=== PATIENT | female | born 1975 | race African-American/Black ===

== ENCOUNTER 2020-05-31 20:22 | Inpatient (IN) ==
[2020-05-31] MEDS ORDERED: ONDANSETRON 4 MG/2 ML VIAL IV STA (21:06)
[2020-05-31] MEDS ORDERED: SODIUM CHLORIDE 0.9% 1,000 ML IV STA (21:06)
[2020-05-31 21:36] LABS: Basophils % 0.7 % (0.0-0.8); Eosinophils % 0.2 % (0.00-10.9); Hematocrit 35.4 VOL% (35.7-47.0); Hemoglobin 11.3 GM/DL (12.0-16.0); Immature Granulocytes % 3.1 %; Immature Granulocytes Absolute 0.17 #; Lymphocytes % 17.5 % (21.3-54.2); Mean Corpuscular HGB Conc 31.9 GM/DL (32-36); Mean Corpuscular Volume 84.3 FL (87-102); Mean Platelet Volume 8.5 FL (9.6-12.0); Monocytes % 8.5 % (1.7-12.7); NRBC # 0.14 10*3/uL; Platelet Count 272 T/CUMM (130-400); Red Cell Distribution Width 19.7 % (9.3-17.3); White Blood Count 5.4 T/CUMM (4-12)
[2020-05-31 21:56] LABS: Alanine Aminotransferase 189 U/L (13-56); Albumin 3.3 G/DL (3.4-5.0); Alkaline Phosphatase 82 U/L (45-117); Amylase 21 U/L (25-115); Aspartate Amino Transferase 173 U/L (0-37); Blood Urea Nitrogen < 1 MG/DL (7-18); Calcium 8.3 MG/DL (8.5-10.1); Estimated Glom Filtration Rate 78 ML/MIN; Glucose 172 MG/DL (74-106); Osmolality,Calculated 271.3 MOS/KG (273-304); Total Protein 7.3 G/DL (6.4-8.3)
[2020-05-31] MEDS ORDERED: PROMETHAZINE 25 MG/1 ML VIAL ONE (22:07)
[2020-05-31 22:31] LABS: Band Neutrophils 1 % (0-10); Lymphocytes 13 % (20-55); Nucleated Red Blood Cells 1 (0-5); Platelet Estimate Normal; Segmented Neutrophils 77 % (50-85); Total Cells Counted 100
[2020-05-31 22:32] LABS: Anisocytosis 2+; Hypochromasia Slight; Microcytosis 1+; Polychromasia Few
[2020-05-31 22:33] LABS: Ovalocytes Slight
[2020-05-31] MEDS ORDERED: PROMETHAZINE 25 MG/1 ML VIAL IM STA (22:40)
[2020-05-31] MEDS ORDERED: NICOTINE 21 MG/24 HR PATCH TRANSDERM PRN (22:58)
[2020-05-31] MEDS ORDERED: diphenhydrAMINE CAP 25 MG CAPSULE PO PRN (22:58)
[2020-05-31] MEDS ORDERED: DEXTROSE 50% 25 GM/50 ML VIAL IV PRN (22:58)
[2020-05-31] MEDS ORDERED: hydrALAZINE 20 MG/1 ML VIAL IV PRN (22:58)
[2020-05-31] MEDS ORDERED: ACETAMINOPHEN 325 MG TABLET PO PRN (22:58)
[2020-05-31] MEDS ORDERED: ONDANSETRON 4 MG/2 ML VIAL IV PRN (22:58)
[2020-05-31] MEDS ORDERED: guaiFENesin/DM ER 600-30 MG TABLET PO PRN (22:58)
[2020-05-31] MEDS ORDERED: PROMETHAZINE 25 MG/1 ML VIAL IM PRN (22:58)
[2020-05-31] MEDS ORDERED: GLUCAGON 1 MG VIAL IM PRN (22:58)
[2020-05-31] MEDS ORDERED: DOCUSATE SODIUM 100 MG CAPSULE PO PRN (22:58)
[2020-05-31] MEDS ORDERED: SODIUM CHLOR 0.9% KCL 40 MEQ 40 MEQ/1,000 ML BAG IV SCH (23:00)
[2020-05-31] MEDS: POTASSIUM CHLORIDE 20 MEQ TABLET PO SCH (23:30)
[2020-05-31] MEDS: SODIUM CHLOR 0.9% KCL 40 MEQ 40 MEQ/1,000 ML BAG IV SCH (23:45)
[2020-06-01 04:52] LABS: Basophils % 0.7 % (0.0-0.8); Eosinophils % 0.2 % (0.00-10.9); Hematocrit 33.8 VOL% (35.7-47.0); Hemoglobin 10.8 GM/DL (12.0-16.0); Immature Granulocytes % 3.4 %; Immature Granulocytes Absolute 0.19 #; Lymphocytes % 17.9 % (21.3-54.2); Mean Corpuscular Volume 84.3 FL (87-102); Mean Platelet Volume 9.3 FL (9.6-12.0); Monocytes % 8.2 % (1.7-12.7); NRBC # 0.09 10*3/uL; Neutrophils % 69.6 % (38.7-73.9); Platelet Count 277 T/CUMM (130-400); Red Blood Count 4.01 MC/CUMM (3.8-5.5); Red Cell Distribution Width 19.9 % (9.3-17.3); White Blood Count 5.6 T/CUMM (4-12)
[2020-06-01 05:09] LABS: Bilirubin,Total 1.4 MG/DL (0.2-1.0); Calcium 8.2 MG/DL (8.5-10.1); Osmolality,Calculated 270.8 MOS/KG (273-304); Thyroid Stimulating Hormone 2.18 uIU/ml (0.358-3.74); Total Protein 6.8 G/DL (6.4-8.3)
[2020-06-01 05:13] LABS: Band Neutrophils 2 % (0-10); Eosinophils 1 % (0-10); Hypochromasia 1+; Lymphocytes 15 % (20-55); Nucleated Red Blood Cells 1 (0-5); Platelet Estimate Adequate; Segmented Neutrophils 80 % (50-85); Total Cells Counted 100
[2020-06-01 05:14] LABS: Microcytosis Slight
[2020-06-01 06:27] LABS: Hepatitis B Core IgM Quant 0.13 Index; Hepatitis B Surface Ag Quant < 0.10 Index; Hepatitis B Surface Ag Result Negative (Negative); Hepatitis C Virus Ab Quant 0.06 Index; Hepatitis C Virus Ab Result Negative (Negative)
[2020-06-01] MEDS ORDERED: CITALOPRAM 20 MG TABLET PO SCH (09:00)
[2020-06-01] MEDS ORDERED: PANTOPRAZOLE 40 MG TABLET PO SCH (09:00)
[2020-06-01] MEDS ORDERED: MYLANTA/LIDO VISC 2:1 300 ML BOTTLE SWISH/SPIT PRN (09:09)
[2020-06-01] MEDS ORDERED: chlorproMAZINE INJ 50 MG in SODIUM CHLORIDE 0.9% 100 ML IV PRN (09:09)
[2020-06-01] MEDS ORDERED: LOPERAMIDE 2 MG CAPSULE PO PRN ×2 (09:09)
[2020-06-01] MEDS ORDERED: BENZTROPINE 2 MG/2 ML AMP IV PRN (09:09)
[2020-06-01] MEDS ORDERED: chlorproMAZINE INJ 25 MG in SODIUM CHLORIDE 0.9% 100 ML IV PRN (09:09)
[2020-06-01] MEDS ORDERED: LACTULOSE 20 GM/30 ML UDCUP PO PRN (09:09)
[2020-06-01] MEDS ORDERED: guaiFENesin 200 MG/10 ML UDCUP PO PRN (09:09)
[2020-06-01] MEDS ORDERED: chlorproMAZINE 25 MG TABLET PO PRN (09:09)
[2020-06-01] MEDS ORDERED: ALUMINUM/MAGNES/SIMETH MAX STR 30 ML UDCUP PO PRN (09:09)
[2020-06-01] MEDS ORDERED: TEMAZEPAM 7.5 MG CAPSULE PO PRN (09:09)
[2020-06-01] MEDS ORDERED: MAGNESIUM HYDROXIDE SUSP 30 ML UDCUP PO PRN (09:09)
[2020-06-01] MEDS ORDERED: ONDANSETRON 4 MG/2 ML VIAL IV PRN (09:09)
[2020-06-01] MEDS ORDERED: MYLANTA/LIDO VISC 2:1 300 ML BOTTLE SWISH/SWAL PRN (09:09)
[2020-06-01] MEDS ORDERED: MAGNESIUM SULF RIDER 4 GM in PREMIX 1 EACH IV ONE (09:14)
[2020-06-01] MEDS ORDERED: DEXAMETHASONE INJ 10 MG in SODIUM CHLORIDE 0.9% 50 ML IV ONE ×2 (09:34→10:00)
[2020-06-01] MEDS: LEVOFLOXACIN INJ 500 MG in PREMIX 1 EACH IV SCH (10:01)
[2020-06-01] MEDS: PANTOPRAZOLE 40 MG VIAL IV SCH ×2 (10:03→20:58)
[2020-06-01] MEDS: ENOXAPARIN 40 MG/0.4 ML SYRINGE SUBCUT SCH (10:03)
[2020-06-01] MEDS: ALPRAZolam 0.25 MG TABLET PO PRN ×2 (10:03→20:58)
[2020-06-01] MEDS: POTASSIUM CHLORIDE 20 MEQ TABLET PO SCH ×3 (10:03→22:07)
[2020-06-01] MEDS: LEVOTHYROXINE 150 MCG TABLET PO SCH (11:15)
[2020-06-01] MEDS: PROMETHAZINE INJ 25 MG in SODIUM CHLORIDE 0.9% 50 ML IV PRN ×3 (12:10→21:07)
[2020-06-01] MEDS: MORPHINE 4 MG/1 ML VIAL IV PRN (18:33)
[2020-06-01] MEDS: DOXEPIN 25 MG CAPSULE PO SCH (20:58)
[2020-06-01] MEDS: SODIUM CHLOR 0.9% KCL 40 MEQ 40 MEQ/1,000 ML BAG IV SCH (21:07)
[2020-06-01] MEDS: POTASSIUM CHLORIDE RIDER 10 MEQ in PREMIX 1 EACH IV PRN (22:36)
[2020-06-01] MEDS: ZALEPLON 5 MG CAPSULE PO PRN (22:36)
[2020-06-02] MEDS: POTASSIUM CHLORIDE RIDER 10 MEQ in PREMIX 1 EACH IV PRN ×3 (00:44→02:52)
[2020-06-02] MEDS: METOCLOPRAMIDE 10 MG/2 ML VIAL IV SCH ×4 (01:39→17:34)
[2020-06-02] MEDS: ALPRAZolam 0.25 MG TABLET PO PRN (02:56)
[2020-06-02] MEDS: SODIUM CHLOR 0.9% KCL 40 MEQ 40 MEQ/1,000 ML BAG IV SCH ×2 (05:35→17:31)
[2020-06-02 05:43] LABS: Basophils # 0.1 10*3/uL (0.0-0.2); Basophils % 0.7 % (0.0-0.8); Eosinophils % 0.1 % (0.00-10.9); Hematocrit 33.1 VOL% (35.7-47.0); Hemoglobin 10.7 GM/DL (12.0-16.0); Immature Granulocytes % 4.9 %; Immature Granulocytes Absolute 0.49 #; Lymphocytes # 1.5 10*3/uL (1.4-4.0); Lymphocytes % 15.5 % (21.3-54.2); Mean Corpuscular HGB Conc 32.3 GM/DL (32-36); Mean Corpuscular Volume 83.4 FL (87-102); Mean Platelet Volume 8.8 FL (9.6-12.0); Monocytes % 6.9 % (1.7-12.7); NRBC # 0.25 10*3/uL; Neutrophils % 71.9 % (38.7-73.9); Platelet Count 269 T/CUMM (130-400); Red Blood Count 3.97 MC/CUMM (3.8-5.5); Red Cell Distribution Width 21.2 % (9.3-17.3); White Blood Count 9.9 T/CUMM (4-12)
[2020-06-02] MEDS: PROMETHAZINE INJ 25 MG in SODIUM CHLORIDE 0.9% 50 ML IV PRN ×4 (06:04→23:42)
[2020-06-02 06:07] LABS: Burr Cells Slight; Hypochromasia 1+; Ovalocytes Slight; Platelet Estimate Adequate
[2020-06-02 06:08] LABS: Microcytosis Slight
[2020-06-02 06:12] LABS: Bilirubin,Total 2.1 MG/DL (0.2-1.0); Osmolality,Calculated 267.5 MOS/KG (273-304); Total Protein 7.1 G/DL (6.4-8.3)
[2020-06-02 06:13] LABS: Osmolality,Calculated 270.4 MOS/KG (273-304)
[2020-06-02] MEDS ORDERED: METOPROLOL TARTRATE 5 MG/5 ML VIAL IV ONE (07:03)
[2020-06-02] MEDS ORDERED: HYDROCORTISONE 2.5% CREAM 30 GM TUBE TOP PRN (08:11)
[2020-06-02] MEDS ORDERED: SKIN HEALING OINT (AQUAPHOR) 50 GM TUBE TOP PRN (08:12)
[2020-06-02] MEDS: LEVOFLOXACIN INJ 500 MG in PREMIX 1 EACH IV SCH (09:10)
[2020-06-02] MEDS: COLESTIPOL 1 GM TABLET PO SCH ×2 (09:15→20:28)
[2020-06-02] MEDS: LEVOTHYROXINE 150 MCG TABLET PO SCH (09:16)
[2020-06-02] MEDS: PANTOPRAZOLE 40 MG VIAL IV SCH ×2 (09:16→20:30)
[2020-06-02] MEDS: ENOXAPARIN 40 MG/0.4 ML SYRINGE SUBCUT SCH (09:17)
[2020-06-02] MEDS: MORPHINE 4 MG/1 ML VIAL IV PRN ×2 (09:58→20:32)
[2020-06-02] MEDS: DOXEPIN 25 MG CAPSULE PO SCH (20:29)
[2020-06-03] MEDS: diphenhydrAMINE CAP 25 MG CAPSULE PO PRN (00:19)
[2020-06-03] MEDS: METOCLOPRAMIDE 10 MG/2 ML VIAL IV SCH ×5 (00:19→23:48)
[2020-06-03] MEDS: PROMETHAZINE INJ 25 MG in SODIUM CHLORIDE 0.9% 50 ML IV PRN ×4 (05:29→23:49)
[2020-06-03 06:11] LABS: Basophils # 0.1 10*3/uL (0.0-0.2); Basophils % 0.6 % (0.0-0.8); Eosinophils % 0.4 % (0.00-10.9); Hematocrit 33.6 VOL% (35.7-47.0); Hemoglobin 10.6 GM/DL (12.0-16.0); Immature Granulocytes % 5.9 %; Immature Granulocytes Absolute 0.46 #; Lymphocytes # 1.4 10*3/uL (1.4-4.0); Lymphocytes % 17.5 % (21.3-54.2); Mean Corpuscular HGB Conc 31.5 GM/DL (32-36); Mean Corpuscular Volume 85.1 FL (87-102); Mean Platelet Volume 9.6 FL (9.6-12.0); Monocytes % 4.9 % (1.7-12.7); NRBC # 0.23 10*3/uL; Neutrophils % 70.7 % (38.7-73.9); Platelet Count 269 T/CUMM (130-400); Red Blood Count 3.95 MC/CUMM (3.8-5.5); Red Cell Distribution Width 21.7 % (9.3-17.3); White Blood Count 7.8 T/CUMM (4-12)
[2020-06-03 06:49] LABS: Calcium 8.4 MG/DL (8.5-10.1); Osmolality,Calculated 268.2 MOS/KG (273-304)
[2020-06-03 06:58] LABS: Albumin 2.8 G/DL (3.4-5.0); Bilirubin,Direct 1.22 MG/DL (0.0-0.20); Bilirubin,Indirect 0.7 MG/DL (0.0-1.0); Bilirubin,Total 1.9 MG/DL (0.2-1.0); Total Protein 6.7 G/DL (6.4-8.3)
[2020-06-03 07:17] LABS: Band Neutrophils 6 % (0-10); Eosinophils 1 % (0-10); Lymphocytes 8 % (20-55); Nucleated Red Blood Cells 5 (0-5); Platelet Estimate Adequate; Segmented Neutrophils 80 % (50-85); Total Cells Counted 100
[2020-06-03 07:18] LABS: Hypochromasia Slight; Microcytosis Slight; Ovalocytes Slight
[2020-06-03 07:20] LABS: Albumin 2.8 G/DL (3.4-5.0); Bilirubin,Total 1.8 MG/DL (0.2-1.0); Calcium 8.4 MG/DL (8.5-10.1); Osmolality,Calculated 269.2 MOS/KG (273-304); Total Protein 6.6 G/DL (6.4-8.3)
[2020-06-03] MEDS: SODIUM CHLOR 0.9% KCL 40 MEQ 40 MEQ/1,000 ML BAG IV SCH ×2 (08:41→23:46)
[2020-06-03] MEDS: LEVOFLOXACIN INJ 500 MG in PREMIX 1 EACH IV SCH (08:41)
[2020-06-03] MEDS: PANTOPRAZOLE 40 MG VIAL IV SCH ×2 (08:42→21:06)
[2020-06-03] MEDS: ENOXAPARIN 40 MG/0.4 ML SYRINGE SUBCUT SCH (08:42)
[2020-06-03] MEDS: LEVOTHYROXINE 150 MCG TABLET PO SCH (08:42)
[2020-06-03] MEDS: COLESTIPOL 1 GM TABLET PO SCH ×2 (08:42→21:06)
[2020-06-03] MEDS: METOPROLOL SUCCINATE XL 25 MG TABLET PO SCH (09:49)
[2020-06-03] MEDS: DOXEPIN 25 MG CAPSULE PO SCH (21:06)
[2020-06-03] MEDS: ZALEPLON 5 MG CAPSULE PO PRN (21:06)
[2020-06-04] MEDS: METOCLOPRAMIDE 10 MG/2 ML VIAL IV SCH ×2 (06:28→14:15)
[2020-06-04] MEDS: LEVOFLOXACIN INJ 500 MG in PREMIX 1 EACH IV SCH (09:31)
[2020-06-04] MEDS: LEVOTHYROXINE 150 MCG TABLET PO SCH (09:32)
[2020-06-04] MEDS: COLESTIPOL 1 GM TABLET PO SCH ×2 (09:32→21:32)
[2020-06-04] MEDS: ENOXAPARIN 40 MG/0.4 ML SYRINGE SUBCUT SCH (09:32)
[2020-06-04] MEDS: PANTOPRAZOLE 40 MG VIAL IV SCH ×2 (09:32→21:16)
[2020-06-04] MEDS: METOPROLOL SUCCINATE XL 25 MG TABLET PO SCH (09:33)
[2020-06-04 10:50] LABS: Basophils # 0.1 10*3/uL (0.0-0.2); Basophils % 1.2 % (0.0-0.8); Eosinophils % 0.3 % (0.00-10.9); Hematocrit 32.1 VOL% (35.7-47.0); Hemoglobin 10.9 GM/DL (12.0-16.0); Immature Granulocytes % 10.8 %; Immature Granulocytes Absolute 0.78 #; Lymphocytes # 1.5 10*3/uL (1.4-4.0); Lymphocytes % 20.6 % (21.3-54.2); Mean Corpuscular Volume 80.7 FL (87-102); Mean Platelet Volume 8.7 FL (9.6-12.0); Monocytes % 5.9 % (1.7-12.7); NRBC # 0.25 10*3/uL; Neutrophils % 61.2 % (38.7-73.9); Platelet Count 246 T/CUMM (130-400); Red Blood Count 3.98 MC/CUMM (3.8-5.5); Red Cell Distribution Width 21.5 % (9.3-17.3); White Blood Count 7.3 T/CUMM (4-12)
[2020-06-04] MEDS: MORPHINE 4 MG/1 ML VIAL IV PRN (11:07)
[2020-06-04 11:20] LABS: Calcium 8.1 MG/DL (8.5-10.1); Osmolality,Calculated 268.2 MOS/KG (273-304)
[2020-06-04 11:26] LABS: Band Neutrophils 8 % (0-10); Hypochromasia 1+; Lymphocytes 17 % (20-55); Microcytosis 1+; Myelocytes 1 %; Nucleated Red Blood Cells 5 (0-5); Polychromasia Slight; Segmented Neutrophils 69 % (50-85); Total Cells Counted 100
[2020-06-04 11:27] LABS: Platelet Estimate Normal
[2020-06-04] MEDS ORDERED: FOSAPREPITANT 150 MG in SODIUM CHLORIDE 0.9% 100 ML IV ONE (14:00)
[2020-06-04] MEDS: SODIUM CHLOR 0.9% KCL 40 MEQ 40 MEQ/1,000 ML BAG IV SCH (17:30)
[2020-06-04] MEDS: SCOPOLAMINE 1.5 MG PATCH TRANSDERM SCH (17:30)
[2020-06-04] MEDS: PROMETHAZINE INJ 25 MG in SODIUM CHLORIDE 0.9% 50 ML IV PRN (21:16)
[2020-06-04] MEDS: DOXEPIN 25 MG CAPSULE PO SCH (21:16)
[2020-06-05] MEDS: PROMETHAZINE INJ 25 MG in SODIUM CHLORIDE 0.9% 50 ML IV PRN ×3 (03:08→20:45)
[2020-06-05] MEDS: MORPHINE 4 MG/1 ML VIAL IV PRN (04:04)
[2020-06-05 06:30] LABS: Basophils # 0.1 10*3/uL (0.0-0.2); Basophils % 1.1 % (0.0-0.8); Eosinophils % 0.2 % (0.00-10.9); Hematocrit 30.6 VOL% (35.7-47.0); Hemoglobin 10.3 GM/DL (12.0-16.0); Immature Granulocytes Absolute 0.84 #; Lymphocytes # 1.2 10*3/uL (1.4-4.0); Mean Corpuscular HGB Conc 33.7 GM/DL (32-36); Mean Corpuscular Volume 81.2 FL (87-102); Mean Platelet Volume 8.9 FL (9.6-12.0); Monocytes % 6.8 % (1.7-12.7); NRBC # 0.28 10*3/uL; Neutrophils % 60.9 % (38.7-73.9); Platelet Count 242 T/CUMM (130-400); Red Blood Count 3.77 MC/CUMM (3.8-5.5); Red Cell Distribution Width 21.2 % (9.3-17.3); White Blood Count 6.4 T/CUMM (4-12)
[2020-06-05 06:50] LABS: Osmolality,Calculated 272.8 MOS/KG (273-304)
[2020-06-05 07:19] LABS: Band Neutrophils 9 % (0-10); Hypochromasia 1+; Lymphocytes 18 % (20-55); Metamyelocytes 2 %; Microcytosis 1+; Myelocytes 3 %; Nucleated Red Blood Cells 6 (0-5); Segmented Neutrophils 60 % (50-85); Tear Drop Cells Slight; Total Cells Counted 100
[2020-06-05 07:20] LABS: Ovalocytes Slight; Platelet Estimate Normal; Polychromasia Slight; Target Cells Slight
[2020-06-05] MEDS: SODIUM CHLOR 0.9% KCL 40 MEQ 40 MEQ/1,000 ML BAG IV SCH ×2 (09:21→21:18)
[2020-06-05] MEDS: LEVOFLOXACIN INJ 500 MG in PREMIX 1 EACH IV SCH (09:21)
[2020-06-05] MEDS: COLESTIPOL 1 GM TABLET PO SCH ×3 (09:22→20:54)
[2020-06-05] MEDS: LEVOTHYROXINE 150 MCG TABLET PO SCH (09:22)
[2020-06-05] MEDS: ENOXAPARIN 40 MG/0.4 ML SYRINGE SUBCUT SCH (09:22)
[2020-06-05] MEDS: PANTOPRAZOLE 40 MG VIAL IV SCH ×2 (09:23→20:44)
[2020-06-05] MEDS: METOPROLOL SUCCINATE XL 25 MG TABLET PO SCH (09:23)
[2020-06-05] MEDS ORDERED: chlorproMAZINE INJ 25 MG in SODIUM CHLORIDE 0.9% 100 ML IV PRN (12:25)
[2020-06-05] MEDS: POTASSIUM CHLORIDE RIDER 20 MEQ in PREMIX 1 EACH IV PRN ×2 (13:02→15:46)
[2020-06-05] MEDS: DOXEPIN 25 MG CAPSULE PO SCH (20:45)
[2020-06-05] MEDS: ALPRAZolam 0.25 MG TABLET PO PRN (23:08)
[2020-06-06] MEDS: SODIUM CHLOR 0.9% KCL 40 MEQ 40 MEQ/1,000 ML BAG IV SCH (04:41)
[2020-06-06 06:32] LABS: Basophils # 0.1 10*3/uL (0.0-0.2); Basophils % 1.6 % (0.0-0.8); Eosinophils % 0.2 % (0.00-10.9); Hemoglobin 9.6 GM/DL (12.0-16.0); Immature Granulocytes % 18.4 %; Immature Granulocytes Absolute 1.03 #; Lymphocytes # 1.2 10*3/uL (1.4-4.0); Lymphocytes % 20.6 % (21.3-54.2); Mean Corpuscular HGB Conc 34.3 GM/DL (32-36); Mean Corpuscular Volume 79.1 FL (87-102); Mean Platelet Volume 8.7 FL (9.6-12.0); Monocytes % 8.8 % (1.7-12.7); NRBC # 0.25 10*3/uL; Neutrophils % 50.4 % (38.7-73.9); Platelet Count 228 T/CUMM (130-400); Red Blood Count 3.54 MC/CUMM (3.8-5.5); Red Cell Distribution Width 21.2 % (9.3-17.3); White Blood Count 5.6 T/CUMM (4-12)
[2020-06-06 07:04] LABS: Albumin 2.1 G/DL (3.4-5.0); Bilirubin,Total 1.9 MG/DL (0.2-1.0); Calcium 8.1 MG/DL (8.5-10.1); Osmolality,Calculated 271.8 MOS/KG (273-304); Total Protein 6.1 G/DL (6.4-8.3)
[2020-06-06 07:07] LABS: Anisocytosis 2+; Band Neutrophils 19 % (0-10); Lymphocytes 19 % (20-55); Metamyelocytes 4 %; Myelocytes 3 %; Nucleated Red Blood Cells 10 (0-5); Platelet Estimate Normal; Polychromasia Slight; Segmented Neutrophils 45 % (50-85); Smudge Cells 1+; Target Cells Few; Tear Drop Cells Few; Total Cells Counted 100
[2020-06-06 07:08] LABS: Ovalocytes Few
[2020-06-06] MEDS: SODIUM CHLORIDE 0.9% 1,000 ML IV SCH (08:34)
[2020-06-06] MEDS ORDERED: propofoL 200 MG/20 ML VIAL IV ONE (09:00)
[2020-06-06] MEDS ORDERED: LIDOCAINE 2% 5 ML VIAL ONE (09:00)
[2020-06-06] MEDS ORDERED: ESMOLOL 100 MG/10 ML VIAL IV ONE (09:00)
[2020-06-06 10:02] LABS: % Iron Saturation 91.8 % (18-50)
[2020-06-06] MEDS ORDERED: MORPHINE 4 MG/1 ML VIAL IV ONE (10:16)
[2020-06-06 11:00] LABS: Hepatitis B Core IgM Quant 0.14 Index; Hepatitis B Surface Ag Quant < 0.10 Index; Hepatitis B Surface Ag Result Negative (Negative); Hepatitis C Virus Ab Quant 0.08 Index; Hepatitis C Virus Ab Result Negative (Negative)
[2020-06-06] MEDS: COLESTIPOL 1 GM TABLET PO SCH ×2 (11:14→21:48)
[2020-06-06] MEDS: PANTOPRAZOLE 40 MG VIAL IV SCH ×2 (11:21→21:53)
[2020-06-06] MEDS: ENOXAPARIN 40 MG/0.4 ML SYRINGE SUBCUT SCH (11:21)
[2020-06-06] MEDS: METOCLOPRAMIDE 10 MG/10 ML UDCUP PO SCH ×3 (11:21→21:51)
[2020-06-06] MEDS: LEVOTHYROXINE 150 MCG TABLET PO SCH (11:21)
[2020-06-06] MEDS: METOPROLOL SUCCINATE XL 25 MG TABLET PO SCH (11:21)
[2020-06-06] MEDS: PROMETHAZINE INJ 25 MG in SODIUM CHLORIDE 0.9% 50 ML IV PRN ×3 (11:24→21:54)
[2020-06-06] MEDS: LEVOFLOXACIN INJ 500 MG in PREMIX 1 EACH IV SCH ×2 (11:55→11:56)
[2020-06-06] MEDS: DOXEPIN 25 MG CAPSULE PO SCH (21:48)
[2020-06-06] MEDS: ALPRAZolam 0.25 MG TABLET PO PRN (21:48)
[2020-06-06] MEDS: diphenhydrAMINE CAP 25 MG CAPSULE PO PRN (21:49)
[2020-06-07] MEDS: SODIUM CHLOR 0.9% KCL 40 MEQ 40 MEQ/1,000 ML BAG IV SCH ×3 (00:05→13:44)
[2020-06-07] MEDS: ZALEPLON 5 MG CAPSULE PO PRN ×2 (01:51→22:12)
[2020-06-07 06:43] LABS: Basophils # 0.1 10*3/uL (0.0-0.2); Basophils % 1.3 % (0.0-0.8); Eosinophils % 0.2 % (0.00-10.9); Hematocrit 27.3 VOL% (35.7-47.0); Immature Granulocytes % 18.3 %; Immature Granulocytes Absolute 1.01 #; Lymphocytes # 1.3 10*3/uL (1.4-4.0); Lymphocytes % 23.2 % (21.3-54.2); Mean Corpuscular Volume 80.3 FL (87-102); Mean Platelet Volume 8.8 FL (9.6-12.0); Monocytes % 8.5 % (1.7-12.7); NRBC # 0.28 10*3/uL; Neutrophils % 48.5 % (38.7-73.9); Platelet Count 212 T/CUMM (130-400); Red Cell Distribution Width 21.4 % (9.3-17.3); White Blood Count 5.5 T/CUMM (4-12)
[2020-06-07 07:19] LABS: Albumin 1.9 G/DL (3.4-5.0); Bilirubin,Total 2.5 MG/DL (0.2-1.0); Calcium 8.1 MG/DL (8.5-10.1); Osmolality,Calculated 273.7 MOS/KG (273-304); Total Protein 5.8 G/DL (6.4-8.3)
[2020-06-07 07:22] LABS: Apearance,Urine CLEAR (Clear); Bacteria,Urine Occasional /HPF (Few); Bilirubin,Urine Negative (Negative); Blood, Urine Negative (Negative); Glucose,Urine (UA) Negative (Negative); Ketones,Urine Negative (Negative); Mucus,Urine Occasional /LPF (Occasional); Nitrite,Urine Negative (Negative); Protein,Urine Negative; RBC,Urine 3 /HPF (0-4); Squamous Epithelial Cell,Urine Occasional /HPF (0-10); Urine Color Yellow (Yellow); Urine Urobilinogen < 2.0 EU/DL (0.2-1.0); WBC,Urine 1 /HPF (0-6)
[2020-06-07 07:55] LABS: Band Neutrophils 4 % (0-10); Lymphocytes 23 % (20-55); Metamyelocytes 5 %; Myelocytes 3 %; Nucleated Red Blood Cells 6 (0-5); Segmented Neutrophils 56 % (50-85); Total Cells Counted 100
[2020-06-07 07:56] LABS: Anisocytosis 1+; Hypochromasia 2+; Macrocytosis 1+; Ovalocytes 2+; Platelet Estimate Normal; Polychromasia 2+
[2020-06-07] MEDS: METOCLOPRAMIDE 10 MG/10 ML UDCUP PO SCH ×4 (08:03→22:13)
[2020-06-07] MEDS: PROMETHAZINE INJ 25 MG in SODIUM CHLORIDE 0.9% 50 ML IV PRN ×2 (08:03→16:23)
[2020-06-07] MEDS: METOPROLOL SUCCINATE XL 25 MG TABLET PO SCH (08:04)
[2020-06-07] MEDS: PANTOPRAZOLE 40 MG VIAL IV SCH ×2 (08:04→22:14)
[2020-06-07] MEDS: ENOXAPARIN 40 MG/0.4 ML SYRINGE SUBCUT SCH (08:04)
[2020-06-07] MEDS: LEVOTHYROXINE 150 MCG TABLET PO SCH (08:04)
[2020-06-07] MEDS: SCOPOLAMINE 1.5 MG PATCH TRANSDERM SCH (08:05)
[2020-06-07] MEDS: COLESTIPOL 1 GM TABLET PO SCH (08:05)
[2020-06-07] MEDS: SODIUM CHLORIDE 0.9% 1,000 ML IV SCH (09:53)
[2020-06-07] MEDS: MORPHINE 4 MG/1 ML VIAL IV PRN (22:10)
[2020-06-07] MEDS: diphenhydrAMINE CAP 25 MG CAPSULE PO PRN (22:11)
[2020-06-07] MEDS: DOXEPIN 25 MG CAPSULE PO SCH (22:13)
[2020-06-08] MEDS: SODIUM CHLOR 0.9% KCL 40 MEQ 40 MEQ/1,000 ML BAG IV SCH (03:24)
[2020-06-08] MEDS: ALPRAZolam 0.25 MG TABLET PO PRN (03:24)
[2020-06-08 06:31] LABS: Albumin 1.9 G/DL (3.4-5.0); Bilirubin,Total 2.6 MG/DL (0.2-1.0); Calcium 7.9 MG/DL (8.5-10.1); Osmolality,Calculated 273.8 MOS/KG (273-304); Total Protein 6.1 G/DL (6.4-8.3)
[2020-06-08] MEDS: METOPROLOL SUCCINATE XL 25 MG TABLET PO SCH (08:12)
[2020-06-08] MEDS: METOCLOPRAMIDE 10 MG/10 ML UDCUP PO SCH ×4 (08:13→21:05)
[2020-06-08] MEDS: LEVOTHYROXINE 150 MCG TABLET PO SCH (08:13)
[2020-06-08] MEDS: PANTOPRAZOLE 40 MG VIAL IV SCH ×2 (08:13→21:06)
[2020-06-08] MEDS: ENOXAPARIN 40 MG/0.4 ML SYRINGE SUBCUT SCH (08:13)
[2020-06-08] MEDS ORDERED: FUROSEMIDE 40 MG/4 ML VIAL IV ONE (08:36)
[2020-06-08] MEDS: PROMETHAZINE INJ 25 MG in SODIUM CHLORIDE 0.9% 50 ML IV PRN ×3 (08:53→21:08)
[2020-06-08] MEDS: DOXEPIN 25 MG CAPSULE PO SCH (21:05)
[2020-06-09] MEDS: ZALEPLON 5 MG CAPSULE PO PRN (00:01)
[2020-06-09] MEDS: PROMETHAZINE INJ 25 MG in SODIUM CHLORIDE 0.9% 50 ML IV PRN ×2 (05:48→19:54)
[2020-06-09] MEDS: LEVOTHYROXINE 150 MCG TABLET PO SCH (08:15)
[2020-06-09] MEDS: METOPROLOL SUCCINATE XL 25 MG TABLET PO SCH (08:15)
[2020-06-09] MEDS: PANTOPRAZOLE 40 MG VIAL IV SCH ×2 (08:15→20:21)
[2020-06-09] MEDS: METOCLOPRAMIDE 10 MG/10 ML UDCUP PO SCH ×4 (08:15→20:21)
[2020-06-09] MEDS: ENOXAPARIN 40 MG/0.4 ML SYRINGE SUBCUT SCH (08:16)
[2020-06-09 08:34] LABS: Basophils # 0.1 10*3/uL (0.0-0.2); Basophils % 0.9 % (0.0-0.8); Eosinophils % 0.1 % (0.00-10.9); Hematocrit 29.2 VOL% (35.7-47.0); Hemoglobin 9.7 GM/DL (12.0-16.0); Immature Granulocytes % 15.1 %; Immature Granulocytes Absolute 1.16 #; Lymphocytes # 1.8 10*3/uL (1.4-4.0); Lymphocytes % 23.3 % (21.3-54.2); Mean Corpuscular HGB Conc 33.2 GM/DL (32-36); Mean Corpuscular Volume 79.8 FL (87-102); Mean Platelet Volume 8.6 FL (9.6-12.0); Monocytes % 8.2 % (1.7-12.7); NRBC # 0.71 10*3/uL; Neutrophils % 52.4 % (38.7-73.9); Platelet Count 229 T/CUMM (130-400); Red Blood Count 3.66 MC/CUMM (3.8-5.5); Red Cell Distribution Width 21.8 % (9.3-17.3); White Blood Count 7.7 T/CUMM (4-12)
[2020-06-09 08:56] LABS: Band Neutrophils 7 % (0-10); Hypochromasia 1+; Lymphocytes 20 % (20-55); Myelocytes 1 %; Nucleated Red Blood Cells 8 (0-5); Platelet Estimate Adequate; Segmented Neutrophils 60 % (50-85); Total Cells Counted 100
[2020-06-09 08:57] LABS: Macrocytosis Slight; Polychromasia 1+
[2020-06-09 09:00] LABS: Albumin 2.2 G/DL (3.4-5.0); Bilirubin,Total 1.5 MG/DL (0.2-1.0); Calcium 8.4 MG/DL (8.5-10.1); Osmolality,Calculated 270.8 MOS/KG (273-304); Total Protein 6.8 G/DL (6.4-8.3)
[2020-06-09] MEDS ORDERED: LORazepam 2 MG/1 ML VIAL IV ONE ×2 (10:26→13:50)
[2020-06-09 13:34] LABS: Antinuclear Ab, S 0.6 U
[2020-06-09] MEDS: DOXEPIN 25 MG CAPSULE PO SCH (20:21)
[2020-06-10 05:59] LABS: Basophils # 0.1 10*3/uL (0.0-0.2); Basophils % 0.9 % (0.0-0.8); Eosinophils % 0.3 % (0.00-10.9); Hematocrit 27.9 VOL% (35.7-47.0); Hemoglobin 9.5 GM/DL (12.0-16.0); Immature Granulocytes % 12.8 %; Immature Granulocytes Absolute 0.98 #; Lymphocytes # 1.6 10*3/uL (1.4-4.0); Lymphocytes % 20.9 % (21.3-54.2); Mean Corpuscular HGB Conc 34.1 GM/DL (32-36); Mean Corpuscular Volume 79.7 FL (87-102); Mean Platelet Volume 8.6 FL (9.6-12.0); Monocytes % 8.6 % (1.7-12.7); NRBC # 0.72 10*3/uL; Neutrophils % 56.5 % (38.7-73.9); Platelet Count 214 T/CUMM (130-400); Red Cell Distribution Width 21.2 % (9.3-17.3); White Blood Count 7.7 T/CUMM (4-12)
[2020-06-10 06:25] LABS: Bilirubin,Total 1.6 MG/DL (0.2-1.0); Calcium 8.4 MG/DL (8.5-10.1); Osmolality,Calculated 268.1 MOS/KG (273-304); Total Protein 6.3 G/DL (6.4-8.3)
[2020-06-10 06:47] LABS: Anisocytosis 2+; Atypical Lymphocytes Few; Band Neutrophils 8 % (0-10); Hypochromasia 2+; Lymphocytes 16 % (20-55); Macrocytosis 2+; Metamyelocytes 13 %; Nucleated Red Blood Cells 11 (0-5); Platelet Estimate Normal; Polychromasia 1+; Segmented Neutrophils 56 % (50-85); Total Cells Counted 100
[2020-06-10 06:48] LABS: Acanthocytes Few; Ovalocytes 1+; Target Cells 1+
[2020-06-10] MEDS: PROMETHAZINE INJ 25 MG in SODIUM CHLORIDE 0.9% 50 ML IV PRN (08:17)
[2020-06-10] MEDS: ENOXAPARIN 40 MG/0.4 ML SYRINGE SUBCUT SCH (08:39)
[2020-06-10] MEDS: LEVOTHYROXINE 150 MCG TABLET PO SCH (08:39)
[2020-06-10] MEDS: METOPROLOL SUCCINATE XL 25 MG TABLET PO SCH (08:40)
[2020-06-10] MEDS: METOCLOPRAMIDE 10 MG/10 ML UDCUP PO SCH ×2 (08:41→13:18)
[2020-06-10] MEDS: PANTOPRAZOLE 40 MG VIAL IV SCH (08:42)
[2020-06-10] MEDS ORDERED: LORazepam 2 MG/1 ML VIAL IV ONE (12:03)
[2020-06-10 12:29] VITALS: BP 136/75
[2020-06-10] MEDS ORDERED: HEPARIN LOCK FLUSH 500 UNIT/5 ML SYRINGE IV ONE (12:31)
== END 2020-06-10 13:45 | disposition home or self-care (01) | DRG 249 ==
LOC: N.EDINP 20:22 → N.ED 20:22 → SUATTDRO 22:58 → N.4E 06-01 08:53
PROVIDERS: ADMIT Internal Medicine; ATTEND Internal Medicine

== ENCOUNTER 2020-06-18 07:47 | Observation (INO) ==
[2020-06-18] MEDS ORDERED: methylPREDNISolone SOD SUC 125 MG/2 ML VIAL IV STA (08:13)
[2020-06-18] MEDS ORDERED: FUROSEMIDE 40 MG/4 ML VIAL IV STA (08:13)
[2020-06-18] MEDS ORDERED: ALBUTEROL NEB SOLN 5 MG/ML 20 ML/BOTTLE CONT NEB STA (08:15)
[2020-06-18] MEDS ORDERED: ALBUTEROL 2.5 MG/3 ML NEB RESP TX STA (08:17)
[2020-06-18 10:07] LABS: Basophils # 0.1 10*3/uL (0.0-0.2); Basophils % 1.1 % (0.0-0.8); Eosinophils % 0.3 % (0.00-10.9); Hematocrit 33.5 VOL% (35.7-47.0); Hemoglobin 10.4 GM/DL (12.0-16.0); Immature Granulocytes % 3.6 %; Immature Granulocytes Absolute 0.27 #; Lymphocytes % 26.3 % (21.3-54.2); Mean Corpuscular Volume 88.4 FL (87-102); Mean Platelet Volume 8.5 FL (9.6-12.0); NRBC # 0.44 10*3/uL; Neutrophils % 57.7 % (38.7-73.9); Platelet Count 384 T/CUMM (130-400); Red Blood Count 3.79 MC/CUMM (3.8-5.5); Red Cell Distribution Width 25.7 % (9.3-17.3); White Blood Count 7.5 T/CUMM (4-12)
[2020-06-18 10:33] LABS: Albumin 3.3 G/DL (3.4-5.0); Bilirubin,Total 1.2 MG/DL (0.2-1.0); Calcium 8.9 MG/DL (8.5-10.1); Osmolality,Calculated 277.4 MOS/KG (273-304); Total Protein 8.8 G/DL (6.4-8.3)
[2020-06-18 10:34] LABS: Ferritin 198.2 ng/ml (8-252)
[2020-06-18] MEDS ORDERED: cefTRIAXone 1,000 MG in SODIUM CHLORIDE 0.9% 100 ML IV STA (10:45)
[2020-06-18 10:46] LABS: PT Patient Result 10.9 SECS (9.8-11.9); Partial Thromboplastin Time 24.9 SECS (23.9-33.8)
[2020-06-18 11:12] LABS: Anisocytosis 2+; Atypical Lymphocytes Few; Band Neutrophils 1 % (0-10); Lymphocytes 28 % (20-55); Macrocytosis 1+; Metamyelocytes 1 %; Myelocytes 2 %; Nucleated Red Blood Cells 6 (0-5); Platelet Estimate Normal; Polychromasia Slight; Segmented Neutrophils 54 % (50-85); Total Cells Counted 100
[2020-06-18] MEDS ORDERED: CYCLOBENZAPRINE 10 MG TABLET PO PRN (12:29)
[2020-06-18] MEDS ORDERED: ALPRAZolam 0.5 MG TABLET PO ONE (13:23)
[2020-06-18] MEDS ORDERED: AZTREONAM 2,000 MG in SODIUM CHLORIDE 0.9% 100 ML IV SCH (13:30)
[2020-06-18] MEDS: MEROPENEM 500 MG in SODIUM CHLORIDE 0.9% 100 ML IV SCH ×2 (14:57→20:48)
[2020-06-18] MEDS: oxyCODONE IR 5 MG TABLET PO SCH ×2 (14:57→20:46)
[2020-06-18] MEDS: busPIRone 5 MG TABLET PO SCH ×2 (14:57→20:47)
[2020-06-18] MEDS ORDERED: POTASSIUM CHLORIDE 20 MEQ TABLET PO PRN (15:07)
[2020-06-18] MEDS ORDERED: POTASSIUM CHLORIDE RIDER 10 MEQ in PREMIX 1 EACH IV PRN (15:07)
[2020-06-18] MEDS: METOCLOPRAMIDE 10 MG/10 ML UDCUP PO SCH ×2 (15:37→21:58)
[2020-06-18] MEDS: POTASSIUM CHLORIDE RIDER 20 MEQ in PREMIX 1 EACH IV PRN ×2 (15:48→17:39)
[2020-06-18] MEDS ORDERED: DOXEPIN 25 MG CAPSULE PO SCH (21:00)
[2020-06-18] MEDS ORDERED: diphenhydrAMINE 50 MG/1 ML VIAL IV PRN (22:14)
[2020-06-19] MEDS: MEROPENEM 500 MG in SODIUM CHLORIDE 0.9% 100 ML IV SCH ×2 (02:44→08:40)
[2020-06-19] MEDS: POTASSIUM CHLORIDE RIDER 20 MEQ in PREMIX 1 EACH IV PRN ×2 (03:49→05:48)
[2020-06-19 06:14] LABS: Basophils # 0.1 10*3/uL (0.0-0.2); Basophils % 0.9 % (0.0-0.8); Eosinophils # 0.1 10*3/uL (0.0-0.87); Eosinophils % 2.1 % (0.00-10.9); Hematocrit 28.9 VOL% (35.7-47.0); Hemoglobin 8.8 GM/DL (12.0-16.0); Immature Granulocytes % 4.1 %; Immature Granulocytes Absolute 0.24 #; Lymphocytes # 1.4 10*3/uL (1.4-4.0); Lymphocytes % 23.2 % (21.3-54.2); Mean Corpuscular HGB Conc 30.4 GM/DL (32-36); Mean Corpuscular Volume 90.6 FL (87-102); Mean Platelet Volume 8.4 FL (9.6-12.0); Monocytes % 10.6 % (1.7-12.7); NRBC # 0.26 10*3/uL; Neutrophils % 59.1 % (38.7-73.9); Platelet Count 353 T/CUMM (130-400); Red Blood Count 3.19 MC/CUMM (3.8-5.5); Red Cell Distribution Width 25.8 % (9.3-17.3); White Blood Count 5.8 T/CUMM (4-12)
[2020-06-19 06:27] LABS: Albumin 2.7 G/DL (3.4-5.0); Bilirubin,Total 1.2 MG/DL (0.2-1.0); Calcium 8.4 MG/DL (8.5-10.1); Osmolality,Calculated 279.3 MOS/KG (273-304); Total Protein 7.3 G/DL (6.4-8.3)
[2020-06-19] MEDS ORDERED: LEVOTHYROXINE 150 MCG TABLET PO SCH (06:30)
[2020-06-19 07:05] VITALS: BP 123/74
[2020-06-19 07:18] LABS: Anisocytosis 2+; Band Neutrophils 3 % (0-10); Eosinophils 5 % (0-10); Lymphocytes 21 % (20-55); Metamyelocytes 2 %; Nucleated Red Blood Cells 5 (0-5); Platelet Estimate Normal; Segmented Neutrophils 60 % (50-85); Total Cells Counted 100
[2020-06-19 07:19] LABS: Macrocytosis Slight; Polychromasia 1+
[2020-06-19] MEDS: METOCLOPRAMIDE 10 MG/10 ML UDCUP PO SCH ×2 (07:28→11:31)
[2020-06-19] MEDS: oxyCODONE IR 5 MG TABLET PO SCH (08:40)
[2020-06-19] MEDS: busPIRone 5 MG TABLET PO SCH (08:40)
[2020-06-19 08:49] LABS: % Iron Saturation 32.7 % (18-50); Ferritin 171.4 ng/ml (8-252)
[2020-06-19] MEDS ORDERED: METOPROLOL SUCCINATE XL 25 MG TABLET PO SCH (09:00)
[2020-06-19] MEDS ORDERED: PANTOPRAZOLE 40 MG TABLET PO SCH (09:00)
[2020-06-19] MEDS ORDERED: amLODIPine 5 MG TABLET PO SCH (09:00)
[2020-06-19] MEDS ORDERED: CETIRIZINE 10 MG TABLET PO SCH (09:00)
[2020-06-19] MEDS ORDERED: FUROSEMIDE 20 MG TABLET PO SCH (09:00)
[2020-06-19] MEDS ORDERED: GABAPENTIN 300 MG CAPSULE PO SCH (09:00)
[2020-06-19] MEDS ORDERED: CHOLECALCIFEROL 5,000 UNIT TABLET PO SCH (09:00)
[2020-06-19] MEDS ORDERED: CITALOPRAM 40 MG TABLET PO SCH (09:00)
[2020-06-19 09:04] LABS: Folate 6.6 NG/ML (5.4-24.0)
[2020-06-19] MEDS ORDERED: HEPARIN LOCK FLUSH 500 UNIT/5 ML SYRINGE IV ONE (10:21)
== END 2020-06-19 11:53 | disposition home or self-care (01) ==
LOC: N.EDINP 07:47 → N.ED 07:47 → N.4E 13:54
PROVIDERS: ADMIT Internal Medicine; ATTEND Internal Medicine

== ENCOUNTER 2022-11-07 10:10 | Inpatient (IN) ==
[2022-11-07] MEDS ORDERED: SODIUM CHLORIDE 0.9% 1,000 ML IV STA ×2 (10:52→13:37)
[2022-11-07 11:13] LABS: Basophils % 0.1 % (0.0-0.8); Eosinophils % 0.3 % (0.00-10.9); Hematocrit 42.3 VOL% (35.7-47.0); Hemoglobin 13.4 GM/DL (12.0-16.0); Immature Granulocytes % 0.7 %; Immature Granulocytes Absolute 0.09 #; Lymphocytes # 0.2 10*3/uL (1.4-4.0); Lymphocytes % 1.2 % (21.3-54.2); Mean Corpuscular HGB Conc 31.7 GM/DL (32-36); Mean Corpuscular Volume 87.2 FL (87-102); Mean Platelet Volume 9.1 FL (9.6-12.0); Monocytes # 0.2 10*3/uL (0.11-0.8); Monocytes % 1.7 % (1.7-12.7); Platelet Count 282 T/CUMM (130-400); Red Blood Count 4.85 MC/CUMM (3.8-5.5); Red Cell Distribution Width 13.9 % (9.3-17.3); White Blood Count 12.7 T/CUMM (4-12)
[2022-11-07 11:29] LABS: Bilirubin,Urine Moderate mg/dL (Negative); Blood, Urine Trace mg/dL (Negative); Glucose,Urine (UA) Negative (Negative); Ketones,Urine Trace mg/dL (Negative); Mucus,Urine Occasional /LPF (Occasional); Nitrite,Urine Negative (Negative); Protein,Urine 30 mg/dL (Negative); RBC,Urine 5 /HPF (0-4); Squamous Epithelial Cell,Urine Moderate /HPF (0-10); Urine Appearance Clear (Clear); Urine Color Amber (Yellow); Urine Specific Gravity 1.025 (1.001-1.035); Urine pH 5.5 (4.5-8.0)
[2022-11-07 11:48] LABS: Alanine Aminotransferase 76 U/L (13-56); Albumin 2.9 G/DL (3.4-5.0); Alkaline Phosphatase 104 U/L (45-117); Aspartate Amino Transferase 66 U/L (0-37); Blood Urea Nitrogen 20 MG/DL (7-18); Carbon Dioxide 26 MMOL/L (21-32); Chloride 100 MMOL/L (98-107); Glucose 133 MG/DL (74-106); Osmolality,Calculated 272.2 MOS/KG (273-304); Potassium 4.2 MMOL/L (3.5-5.1); Sodium 134 MMOL/L (136-145); Total Protein 6.8 G/DL (6.4-8.2)
[2022-11-07 11:53] LABS: INR 1.4; PT Patient Result 14.9 SECS (10.1-12.1)
[2022-11-07 12:21] LABS: Sedimentation Rate-Westergren 41 MM/HR (0-20)
[2022-11-07 12:50] LABS: Band Neutrophils 4 % (0-10); Lymphocytes 1 % (20-55); Total Cells Counted 100
[2022-11-07 12:51] LABS: Platelet Estimate Normal
[2022-11-07] MEDS ORDERED: PIPERACILLIN/TAZOBACTAM 3,375 MG in SODIUM CHLORIDE 0.9% 100 ML IV STA (13:28)
[2022-11-07] MEDS ORDERED: VANCOMYCIN INJ 1,000 MG in SODIUM CHLORIDE 0.9% 250 ML IV STA (13:29)
[2022-11-07] MEDS ORDERED: SODIUM CHLORIDE 0.9% 3,100 ML IV ONE (13:38)
[2022-11-07] MEDS ORDERED: ONDANSETRON 4 MG/2 ML VIAL IV PRN (14:41)
[2022-11-07] MEDS ORDERED: ACETAMINOPHEN 325 MG TABLET PO PRN (14:41)
[2022-11-07] MEDS ORDERED: ZALEPLON 5 MG CAPSULE PO PRN (14:41)
[2022-11-07] MEDS ORDERED: DOCUSATE SODIUM 100 MG CAPSULE PO PRN (14:41)
[2022-11-07] MEDS: ENOXAPARIN 40 MG/0.4 ML SYRINGE SUBCUT SCH (16:31)
[2022-11-07] MEDS: SODIUM CHLORIDE 0.9% 1,000 ML IV SCH (18:42)
[2022-11-07] MEDS ORDERED: LACTATED RINGERS 1,000 ML IV ONE (20:01)
[2022-11-07] MEDS ORDERED: VANCOMYCIN INJ 1,000 MG in SODIUM CHLORIDE 0.9% 250 ML IV SCH (21:00)
[2022-11-07 22:45] LABS: Arterial Base Excess iSTAT -4 MMOL/L (-2.5-2.5); Arterial Bicarbonate iSTAT 20.4 MMOL/L (20-26); Arterial O2 Saturation iSTAT 94 % (95-100); Arterial PCO2 iSTAT 34 MM HG (35-48); Arterial PO2 iSTAT 74 MM HG (80-95); Arterial Total CO2 iSTAT 21 MMO/L (23-27); Arterial pH iSTAT 7.381 (7.35-7.45)
[2022-11-07] MEDS: VANCOMYCIN INJ 1,500 MG in SODIUM CHLORIDE 0.9% 500 ML IV SCH (23:14)
[2022-11-08 02:33] LABS: White Blood Count 5.7 T/CUMM (4-12)
[2022-11-08 02:34] LABS: Hematocrit 35.1 VOL% (35.7-47.0); Hemoglobin 11.3 GM/DL (12.0-16.0); Mean Corpuscular HGB Conc 32.2 GM/DL (32-36); Mean Corpuscular Volume 85.6 FL (87-102); Platelet Count 220 T/CUMM (130-400)
[2022-11-08 02:35] LABS: Eosinophils % 1.4 % (0.00-10.9); Immature Granulocytes % 0.3 %; Lymphocytes # 0.3 10*3/uL (1.4-4.0); Lymphocytes % 5.9 % (21.3-54.2); Monocytes % 1.9 % (1.7-12.7); Neutrophils % 90.5 % (38.7-73.9)
[2022-11-08 02:36] LABS: Eosinophils # 0.1 10*3/uL (0.0-0.87); Immature Granulocytes Absolute 0.02 #; Monocytes # 0.1 10*3/uL (0.11-0.8)
[2022-11-08 02:55] LABS: Calcium 8.1 MG/DL (8.5-10.1); Osmolality,Calculated 272.1 MOS/KG (273-304); Potassium 3.6 MMOL/L (3.5-5.1)
[2022-11-08 03:13] LABS: Band Neutrophils 1 % (0-10); Eosinophils 1 % (0-10); Lymphocytes 4 % (20-55); Total Cells Counted 100
[2022-11-08 03:14] LABS: Ovalocytes Slight
[2022-11-08 03:15] LABS: Platelet Estimate Adequate
[2022-11-08] MEDS: PIPERACILLIN/TAZOBACTAM 3,375 MG in SODIUM CHLORIDE 0.9% 100 ML IV SCH ×4 (04:50→22:11)
[2022-11-08] MEDS: LEVOTHYROXINE 150 MCG TABLET PO SCH (06:54)
[2022-11-08 07:49] LABS: Albumin 2.5 G/DL (3.4-5.0); Bilirubin,Direct 0.61 MG/DL (0.0-0.20); Bilirubin,Indirect 0.3 MG/DL (0.0-1.0); Bilirubin,Total 0.9 MG/DL (0.20-1.00); Total Protein 6.1 G/DL (6.4-8.2)
[2022-11-08 08:16] LABS: Free T4 (Free Thyroxine) 1.41 NG/DL (0.76-1.46)
[2022-11-08] MEDS: PANTOPRAZOLE 40 MG TABLET PO SCH (09:56)
[2022-11-08] MEDS: CITALOPRAM 40 MG TABLET PO SCH (09:56)
[2022-11-08] MEDS: CETIRIZINE 10 MG TABLET PO SCH (09:56)
[2022-11-08] MEDS: SODIUM CHLORIDE 0.9% 1,000 ML IV SCH ×2 (09:56→16:33)
[2022-11-08] MEDS: VANCOMYCIN INJ 1,500 MG in SODIUM CHLORIDE 0.9% 500 ML IV SCH ×2 (09:56→22:10)
[2022-11-08 12:26] LABS: Albumin 2.3 G/DL (3.4-5.0); Bilirubin,Total 0.7 MG/DL (0.20-1.00); Calcium 8.3 MG/DL (8.5-10.1); Osmolality,Calculated 273.7 MOS/KG (273-304); Potassium 3.7 MMOL/L (3.5-5.1); Total Protein 5.9 G/DL (6.4-8.2)
[2022-11-08] MEDS: ENOXAPARIN 40 MG/0.4 ML SYRINGE SUBCUT SCH (14:56)
[2022-11-08] MEDS: MENTHOL/ZINC OXIDE OINT 71 GM JAR TOP SCH ×2 (15:19→22:12)
[2022-11-08] MEDS: hydrOXYzine HCL 25 MG TABLET PO PRN (18:50)
[2022-11-08] MEDS ORDERED: diphenhydrAMINE 50 MG/1 ML VIAL IV ONE (20:25)
[2022-11-08] MEDS ORDERED: HYDROCORTISONE 100 MG VIAL IV ONE (20:25)
[2022-11-09] MEDS: SODIUM CHLORIDE 0.9% 1,000 ML IV SCH ×3 (06:14→21:27)
[2022-11-09] MEDS: PANTOPRAZOLE 40 MG TABLET PO SCH (08:45)
[2022-11-09] MEDS: CETIRIZINE 10 MG TABLET PO SCH (08:45)
[2022-11-09] MEDS: hydrOXYzine HCL 25 MG TABLET PO PRN (08:45)
[2022-11-09] MEDS ORDERED: diphenhydrAMINE 50 MG/1 ML VIAL IV ONE (08:51)
[2022-11-09] MEDS: PIPERACILLIN/TAZOBACTAM 3,375 MG in SODIUM CHLORIDE 0.9% 100 ML IV SCH ×3 (08:52→23:36)
[2022-11-09 09:04] LABS: Albumin 2.6 G/DL (3.4-5.0); Bilirubin,Total 0.4 MG/DL (0.20-1.00); Calcium 8.4 MG/DL (8.5-10.1); Osmolality,Calculated 281.1 MOS/KG (273-304); Potassium 3.8 MMOL/L (3.5-5.1)
[2022-11-09] MEDS: VANCOMYCIN INJ 1,500 MG in SODIUM CHLORIDE 0.9% 500 ML IV SCH ×2 (10:16→21:27)
[2022-11-09] MEDS: CITALOPRAM 40 MG TABLET PO SCH ×2 (10:16→10:40)
[2022-11-09] MEDS: MENTHOL/ZINC OXIDE OINT 71 GM JAR TOP SCH ×3 (10:29→21:27)
[2022-11-09] MEDS: ENOXAPARIN 40 MG/0.4 ML SYRINGE SUBCUT SCH (14:31)
[2022-11-09] MEDS: diphenhydrAMINE CAP 25 MG CAPSULE PO PRN (23:36)
[2022-11-10] MEDS: SODIUM CHLORIDE 0.9% 1,000 ML IV SCH ×2 (04:58→19:08)
[2022-11-10] MEDS: LEVOTHYROXINE 150 MCG TABLET PO SCH (05:45)
[2022-11-10 06:03] LABS: Alanine Aminotransferase 28 U/L (13-56); Albumin 2.5 G/DL (3.4-5.0); Alkaline Phosphatase 103 U/L (45-117); Aspartate Amino Transferase 15 U/L (0-37); Bilirubin,Total < 0.39 MG/DL (0.20-1.00); Blood Urea Nitrogen 11 MG/DL (7-18); Calcium 8.4 MG/DL (8.5-10.1); Carbon Dioxide 27 MMOL/L (21-32); Chloride 109 MMOL/L (98-107); Glucose 95 MG/DL (74-106); Potassium 3.3 MMOL/L (3.5-5.1); Sodium 143 MMOL/L (136-145); Total Protein 5.9 G/DL (6.4-8.2)
[2022-11-10] MEDS ORDERED: POTASSIUM CHLORIDE 20 MEQ TABLET PO ONE (07:32)
[2022-11-10 07:45] LABS: Basophils % 0.2 % (0.0-0.8); Eosinophils # 0.1 10*3/uL (0.0-0.87); Eosinophils % 1.9 % (0.00-10.9); Hematocrit 30.1 VOL% (35.7-47.0); Hemoglobin 9.8 GM/DL (12.0-16.0); Immature Granulocytes % 0.9 %; Immature Granulocytes Absolute 0.04 #; Lymphocytes # 2.1 10*3/uL (1.4-4.0); Lymphocytes % 45.4 % (21.3-54.2); Mean Corpuscular HGB Conc 32.6 GM/DL (32-36); Mean Corpuscular Volume 86.5 FL (87-102); Mean Platelet Volume 9.4 FL (9.6-12.0); Monocytes # 0.3 10*3/uL (0.11-0.8); Monocytes % 5.8 % (1.7-12.7); Neutrophils % 45.8 % (38.7-73.9); Platelet Count 217 T/CUMM (130-400); Red Blood Count 3.48 MC/CUMM (3.8-5.5); Red Cell Distribution Width 14.5 % (9.3-17.3); White Blood Count 4.6 T/CUMM (4-12)
[2022-11-10] MEDS: PANTOPRAZOLE 40 MG TABLET PO SCH (08:31)
[2022-11-10] MEDS: CITALOPRAM 40 MG TABLET PO SCH (08:31)
[2022-11-10] MEDS: PIPERACILLIN/TAZOBACTAM 3,375 MG in SODIUM CHLORIDE 0.9% 100 ML IV SCH ×3 (08:36→23:50)
[2022-11-10] MEDS: MENTHOL/ZINC OXIDE OINT 71 GM JAR TOP SCH ×2 (08:42→20:46)
[2022-11-10 10:15] LABS: Anisocytosis 1+; Band Neutrophils 4 % (0-10); Eosinophils 1 % (0-10); Hypochromia Slight; Lymphocytes 43 % (20-55); Platelet Estimate Normal; Total Cells Counted 100
[2022-11-10 10:22] LABS: % Iron Saturation 31.3 % (18-50)
[2022-11-10] MEDS: VANCOMYCIN INJ 1,500 MG in SODIUM CHLORIDE 0.9% 500 ML IV SCH ×2 (11:48→20:45)
[2022-11-10] MEDS: ENOXAPARIN 40 MG/0.4 ML SYRINGE SUBCUT SCH (14:34)
[2022-11-10] MEDS: diphenhydrAMINE CAP 25 MG CAPSULE PO PRN (18:14)
[2022-11-11] MEDS: LEVOTHYROXINE 150 MCG TABLET PO SCH (05:56)
[2022-11-11] MEDS: diphenhydrAMINE CAP 25 MG CAPSULE PO PRN (05:56)
[2022-11-11 08:52] LABS: Basophils % 0.4 % (0.0-0.8); Eosinophils # 0.1 10*3/uL (0.0-0.87); Eosinophils % 1.3 % (0.00-10.9); Hematocrit 33.4 VOL% (35.7-47.0); Hemoglobin 10.6 GM/DL (12.0-16.0); Immature Granulocytes Absolute 0.16 #; Lymphocytes # 2.2 10*3/uL (1.4-4.0); Lymphocytes % 41.3 % (21.3-54.2); Mean Corpuscular HGB Conc 31.7 GM/DL (32-36); Mean Corpuscular Volume 85.4 FL (87-102); Mean Platelet Volume 8.9 FL (9.6-12.0); Monocytes # 0.3 10*3/uL (0.11-0.8); Monocytes % 6.1 % (1.7-12.7); NRBC # 0.03 10*3/uL; Neutrophils % 47.9 % (38.7-73.9); Platelet Count 253 T/CUMM (130-400); Red Blood Count 3.91 MC/CUMM (3.8-5.5); Red Cell Distribution Width 14.4 % (9.3-17.3); White Blood Count 5.3 T/CUMM (4-12)
[2022-11-11] MEDS: PIPERACILLIN/TAZOBACTAM 3,375 MG in SODIUM CHLORIDE 0.9% 100 ML IV SCH (08:53)
[2022-11-11] MEDS: PANTOPRAZOLE 40 MG TABLET PO SCH (08:54)
[2022-11-11] MEDS: CITALOPRAM 40 MG TABLET PO SCH (08:54)
[2022-11-11 09:06] LABS: Calcium 8.4 MG/DL (8.5-10.1); Osmolality,Calculated 281.1 MOS/KG (273-304); Potassium 3.8 MMOL/L (3.5-5.1)
[2022-11-11 09:17] LABS: Anisocytosis 1+; Atypical Lymphocytes Few; Band Neutrophils 1 % (0-10); Eosinophils 4 % (0-10); Hypochromia Slight; Lymphocytes 41 % (20-55); Macrocytosis Slight; Platelet Estimate Normal; Total Cells Counted 100
[2022-11-11] MEDS: VANCOMYCIN INJ 1,500 MG in SODIUM CHLORIDE 0.9% 500 ML IV SCH (11:02)
[2022-11-11 11:49] VITALS: BP 138/90
== END 2022-11-11 12:50 | disposition home or self-care (01) | DRG 721 ==
LOC: N.ED 10:10 → N.EDINP 14:19 → N.TELEN 18:04
PROVIDERS: ADMIT Hospitalist; ATTEND Hospitalist